=== PATIENT | female | born 1960 | race Caucasian/White ===

== ENCOUNTER 2016-12-01 06:27 | Day surgery (SDC) | payer MEDICAID ==
[~2016-12-01] VITALS: Ht 162.6 cm; Wt 69.5 kg
[~2016-12-01 06:27] MED LIST: ALBU8.5H IH; ATOR40TA28 PO; BECL8.7A6 PO; CALC600T95 PO; EMTR1TAB12 PO; FAMO20 PO; FLUT16H NASAL; IBUP-1547 PO; LORA10TA7 PO; MONT10TA21 PO; MULT-1203 PO; OXYB5 PO; SERT100T12 PO; SODIUM CHLORIDE 0.9% 1,000 ML IV ONE; TOPI100 PO
[2016-12-01] MEDS ORDERED: SODIUM CHLORIDE 0.9% 1,000 ML IV ONE (07:06)
[2016-12-01] MEDS ORDERED: MIDAZOLAM HCL 2 MG/2 ML VIAL ONE (07:40)
[2016-12-01] MEDS ORDERED: FentaNYL CITRATE-PF 100 MCG/2 ML VIAL ONE (07:40)
[2016-12-01] MEDS ORDERED: MethylPREDNISolone SOD SUCC 125 MG/2 ML VIAL IVP ONE (08:45)
[2016-12-01] MEDS ORDERED: MethylPREDNISolone SOD SUCC 125 MG/2 ML VIAL ONE (09:14)
[2016-12-01] MEDS ORDERED: LIDOCAINE HCL 2% 30 ML JELLY TP ONE (13:54)
[2016-12-01] MEDS ORDERED: ALBUTEROL SULFATE 2.5 MG/0.5 ML NEB SOLUTION NEB ONE (13:54)
[2016-12-01] MEDS ORDERED: BENZOCAINE 20% 50 MCG/SPRAY 57 GM TP ONE (13:54)
[2016-12-01] MEDS ORDERED: LIDOCAINE HCL 4% 50 ML SOLUTION TP ONE (13:54)
[2016-12-01] MEDS ORDERED: OXYGEN THERAPY IH SCH (20:00)
== END 2016-12-01 10:10 | disposition home or self-care (01) ==
LOC: SURGERY 06:27
PROVIDERS: ATTEND Internal Medicine Critical Care Medicine
DX: J38.4 Edema of larynx (principal); B37.0 Candidal stomatitis; F41.9 Anxiety disorder, unspecified; F32.9 Major depressive disorder, single episode, unspecified; F17.210 Nicotine dependence, cigarettes, uncomplicated; Z90.710 Acquired absence of both cervix and uterus
CPT/HCPCS: 31623; 31624; 71010; 87015 ×2; 87070; 87101; 87205; 87220; 88108; 88312; J2250; J2930; J3010; J7030

== ENCOUNTER 2018-12-10 06:28 | Day surgery (SDC) | payer OTHER ==
[~2018-12-10] VITALS: Ht 162.6 cm; Wt 63.2 kg
[~2018-12-10 06:28] MED LIST changes: -ALBU8.5H IH; +ALBU8.5H8 IH; +CALC600T12 PO; -CALC600T95 PO; -IBUP-1547 PO; +IBUP-2071 PO; -TOPI100 PO; +TOPI100T37 PO
[2018-12-10] MEDS ORDERED: EPINEPHrine 1:1,000 [1 MG/ML] AMP IM ONE (06:29)
[2018-12-10] MEDS ORDERED: LIDOCAINE 2% 30 ML JELLY TP ONE (06:29)
[2018-12-10] MEDS ORDERED: LIDOCAINE 4% 50 ML SOLUTION TP ONE (06:29)
[2018-12-10] MEDS ORDERED: BENZOCAINE 20% 50 MCG/SPRAY 57 GM TP ONE (06:29)
[2018-12-10] MEDS ORDERED: ALBUTEROL SULFATE 2.5 MG/0.5 ML NEB SOLUTION NEB ONE (06:29)
[2018-12-10] MEDS ORDERED: SODIUM CHLORIDE 0.9% 1,000 ML IV ONE (06:30)
[2018-12-10] MEDS ORDERED: IRON-24 PO (07:21)
[2018-12-10] MEDS ORDERED: TERB250 PO (07:21)
[2018-12-10] MEDS ORDERED: MELO-107 PO (07:21)
[2018-12-10] MEDS ORDERED: DULO20CA30 PO (07:21)
[2018-12-10] MEDS ORDERED: MIDAZOLAM HCL 2 MG/2 ML VIAL ONE (08:04)
[2018-12-10] MEDS ORDERED: FentaNYL CITRATE-PF 100 MCG/2 ML VIAL ONE (08:05)
[2018-12-10] MEDS ORDERED: MethylPREDNISolone SOD SUCC 125 MG/2 ML VIAL IVP ONE (09:15)
[2018-12-10] MEDS ORDERED: MethylPREDNISolone SOD SUCC 125 MG/2 ML VIAL ONE (09:20)
[2018-12-10] MEDS ORDERED: OXYGEN THERAPY IH SCH (20:00)
== END 2018-12-10 11:00 | disposition home or self-care (01) ==
LOC: SURGERY 06:28
PROVIDERS: ATTEND Internal Medicine Critical Care Medicine
DX: J38.4 Edema of larynx (principal); B37.0 Candidal stomatitis; G47.30 Sleep apnea, unspecified; E78.00 Pure hypercholesterolemia, unspecified; F32.9 Major depressive disorder, single episode, unspecified; F41.9 Anxiety disorder, unspecified; I10 Essential (primary) hypertension; J44.9 Chronic obstructive pulmonary disease, unspecified; Z98.51 Tubal ligation status; Z90.710 Acquired absence of both cervix and uterus; Z98.890 Other specified postprocedural states; Z87.891 Personal history of nicotine dependence; Z98.42 Cataract extraction status, left eye; Z98.41 Cataract extraction status, right eye; Z87.01 Personal history of pneumonia (recurrent)
CPT/HCPCS: 31623; 31624; 71045; 87015; 87070; 87077; 87101; 87205; 87206; 87220; 88108; 88312; J0171; J2250; J2930; J3010; J7030

== ENCOUNTER 2020-03-19 06:06 | Day surgery (SDC) | payer OTHER ==
[~2020-03-19] VITALS: Ht 162.6 cm; Wt 68.2 kg
[~2020-03-19 06:06] MED LIST changes: +BICT1TAB PO; -CALC600T12 PO; +CALC600T16 PO; +DULO-8 PO; -EMTR1TAB12 PO; +FERR-89 PO; +GABA-1181 PO; -IBUP-2071 PO; +LINA145C PO; +MELO-107 PO; +OMEP20 PO; -SODIUM CHLORIDE 0.9% 1,000 ML IV ONE; +SODIUM CHLORIDE 0.9% 1,000 ML ONE
[2020-03-19] MEDS ORDERED: ALBUTEROL SULFATE 2.5 MG/0.5 ML NEB SOLUTION NEB ONE (06:07)
[2020-03-19] MEDS ORDERED: LIDOCAINE 4% 50 ML SOLUTION TP ONE (06:07)
[2020-03-19] MEDS ORDERED: LIDOCAINE 2% 30 ML JELLY TP ONE (06:07)
[2020-03-19] MEDS ORDERED: SODIUM CHLORIDE 0.9% 1,000 ML IV ONE (06:30)
[2020-03-19] MEDS ORDERED: MIDAZOLAM HCL 2 MG/2 ML VIAL ONE (08:04)
[2020-03-19] MEDS ORDERED: FentaNYL CITRATE-PF 100 MCG/2 ML VIAL ONE (08:04)
[2020-03-19] MEDS ORDERED: MethylPREDNISolone SOD SUCC 125 MG/2 ML VIAL IVP ONE (08:30)
[2020-03-19] MEDS ORDERED: MethylPREDNISolone SOD SUCC 125 MG/2 ML VIAL ONE (08:35)
[2020-03-19] MEDS ORDERED: OXYGEN THERAPY IH SCH (20:00)
== END 2020-03-19 09:40 | disposition home or self-care (01) ==
LOC: SURGERY 06:06
PROVIDERS: ATTEND Internal Medicine Critical Care Medicine
DX: J38.4 Edema of larynx (principal); B37.0 Candidal stomatitis; F41.9 Anxiety disorder, unspecified; F32.9 Major depressive disorder, single episode, unspecified; E78.00 Pure hypercholesterolemia, unspecified; Z11.59 Encounter for screening for other viral diseases; Z90.710 Acquired absence of both cervix and uterus; Z98.890 Other specified postprocedural states; Z98.51 Tubal ligation status; Z87.891 Personal history of nicotine dependence
CPT/HCPCS: 31623; 31624; 71045; 87015; 87070; 87077; 87101; 87186; 87205; 87206; 87220; 87635; 88108; 88312; J2250; J2930; J3010; J7030; J7613; Z7610

== ENCOUNTER 2023-02-25 05:48 | Day surgery (SDC) | payer OTHER ==
[~2023-02-25] VITALS: Ht 162.6 cm; Wt 70.0 kg
[~2023-02-25 05:48] MED LIST changes: +CALC-1124 PO; -CALC600T16 PO; +DULO-113 PO; -DULO-8 PO; -FERR-89 PO; +FERR325T27 PO; -FLUT16H NASAL; +FLUT16SP NASAL; -MELO-107 PO; +MELO-381 PO; +MONT-35 PO; -MONT10TA21 PO; -OXYB5 PO; +OXYB5TAB20 PO; +SERT-162 PO; -SERT100T12 PO; -SODIUM CHLORIDE 0.9% 1,000 ML ONE
[2023-02-25] MEDS ORDERED: LIDOCAINE 4% 50 ML SOLUTION TP ONE (05:49)
[2023-02-25] MEDS ORDERED: LIDOCAINE 2% 11 ML JELLY TP ONE (05:49)
[2023-02-25] MEDS ORDERED: BENZOCAINE 20% 50 MCG/SPRAY 57 GM TP ONE (05:49)
[2023-02-25] MEDS ORDERED: SODIUM CHLORIDE 0.9% 1,000 ML IV ONE (07:00)
[2023-02-25] MEDS ORDERED: SODIUM CHLORIDE 0.9% 1,000 ML ONE (07:37)
[2023-02-25] MEDS ORDERED: MIDAZOLAM HCL 2 MG/2 ML VIAL ONE (08:22)
[2023-02-25] MEDS ORDERED: FentaNYL CITRATE PF 100 MCG/2 ML VIAL ONE (08:22)
[2023-02-25 09:09] VITALS: PULSE 81; RESP 18; O2SAT 100
[2023-02-25] MEDS ORDERED: MethylPREDNISolone SOD SUCC 125 MG/2 ML VIAL ONE (09:16)
[2023-02-25] MEDS ORDERED: MethylPREDNISolone SOD SUCC 125 MG/2 ML VIAL IVP ONE (09:30)
== END 2023-02-25 11:25 | disposition home or self-care (01) ==
LOC: SURGERY 05:48
PROVIDERS: ATTEND Internal Medicine Critical Care Medicine
DX: J38.4 Edema of larynx (principal); B37.0 Candidal stomatitis; Z87.01 Personal history of pneumonia (recurrent); Z79.899 Other long term (current) drug therapy
CPT/HCPCS: 31623; 88112; 87206; 87101; 87220; 87070; 31624; 71045; 87015; J3010; J2250; J2930; Q9967; J7030; Z7610